=== PATIENT | female | born 1950 | race Caucasian/White ===

== ENCOUNTER 2024-07-06 06:17 | Day surgery (SDC) | payer MEDICARE, OTHER, SELFPAY | END 2024-07-06 13:11 | disposition home or self-care (01) | LOC: GI 06:17 | PROVIDERS: ATTENDING PHYSICIAN Internal Medicine Gastroenterology; FAMILY PHYSICIAN Internal Medicine Geriatric Medicine | DX: Z12.11 Encounter for screening for malignant neoplasm of colon (principal); K57.30 Diverticulosis of large intestine without perforation or abscess without bleeding; K64.8 Other hemorrhoids; D12.4 Benign neoplasm of descending colon; K44.9 Diaphragmatic hernia without obstruction or gangrene; K31.7 Polyp of stomach and duodenum; K22.70 Barrett's esophagus without dysplasia; Z86.0100 Personal history of colon polyps, unspecified | CPT/HCPCS: 45380; 43239; 88305 ==